=== PATIENT | female | born 1960 | race African-American/Black ===

== ENCOUNTER 2018-08-20 19:27 | Inpatient (IN) | payer MEDICAID ==
[~2018-08-20] VITALS: Ht 165.1 cm; Wt 88.5 kg
[~2018-08-20 19:27] MED LIST: LORA1TAB PO; MIRT30TA7 PO; PHEN100C4; QUET25TA PO
[2018-08-20] MEDS ORDERED: SODIUM CHLORIDE 0.9% 1,000 ML IV ONE ×2 (20:33)
[2018-08-20] MEDS ORDERED: PANTOPRAZOLE SODIUM 40 MG/VIAL IV ONE (21:00)
[2018-08-20 21:09] LABS: BASOPHILS % 0.7 % (0.0-2.0); EOSINOPHILS % 0.7 % (0.0-5.0); HEMATOCRIT. 41.8 % (36.0-48.0); HEMOGLOBIN. 14.1 g/dL (12.0-16.0); MEAN CORPUSCULAR HEMOGLOBIN 29.1 pg (28.0-32.0); MEAN CORPUSCULAR VOLUME 86.4 fL (81.0-99.0); MEAN PLATELET VOLUME 8.3 fl (7.4-10.4); MONOCYTES % 4.4 % (2.0-8.0); NEUTROPHILS % 72.2 % (40.0-76.0); PLATELET 315 x1000/uL (130-400); RED BLOOD CELL COUNT 4.84 mill/uL (4.2-5.4); RED CELL DISTRIBUTION WIDTH 14.8 % (11.6-14.6)
[2018-08-20 21:14] LABS: CHLORIDE 109 mEq/L (98-107); PARTIAL THROMBOPLASTIN TIME 31.5 sec (23.4-31.0); PROTHROMBIN TIME 10.2 sec (9.1-11.1)
[2018-08-20] MEDS ORDERED: METHYLPREDNISOLONE SOD SUCC 125 MG/2 ML VIAL IV STA (21:57)
[2018-08-20] MEDS ORDERED: ALBUTEROL (0.083%) 2.5MG/3ML NEB HHN STA (21:57)
[2018-08-20] MEDS ORDERED: IPRATROPIUM BROMIDE (0.02%) 0.5MG/2.5ML NEB HHN STA (21:57)
[2018-08-20] MEDS ORDERED: SODIUM CHLORIDE 0.9% 1000ML BAG (SEPSIS BOLUS) IV ONE (22:00)
[2018-08-20] MEDS ORDERED: AZITHROMYCIN 500 MG in DEXT 5% WATER 250 ML IV ONE (22:00)
[2018-08-20] MEDS ORDERED: PHENYTOIN SODIUM EXTENDED 100MG CAPSULE PO ONE (22:15)
[2018-08-20 22:57] LABS: CLARITY URINE CLOUDY (CLEAR); COLOR URINE YELLOW (YELLOW); KETONES URINE TRACE (NEGATIVE); LEUKOCYTE ESTERASE URINE 3+ (NEGATIVE); NITRITE URINE NEGATIVE (NEGATIVE); OCCULT BLOOD URINE TRACE (NEGATIVE); PH URINE 5.5 (4.5-8.0); PROTEIN URINE NEGATIVE (NEGATIVE); SPECIFIC GRAVITY URINE 1.012 (1.005-1.030); UROBILINOGEN URINE 0.2 E.U./dL (0.2-1.0)
[2018-08-20] MEDS ORDERED: MAGNESIUM/ALUMINUM HYDROXIDE/SIMETHICONE 30ML UDC PO PRN (23:45)
[2018-08-20] MEDS ORDERED: DOCUSATE SODIUM 100MG CAPSULE PO PRN (23:45)
[2018-08-20] MEDS ORDERED: CLONIDINE 0.1MG TABLET PO PRN (23:45)
[2018-08-20] MEDS ORDERED: ACETAMINOPHEN 325MG TABLET PO PRN (23:45)
[2018-08-20] MEDS ORDERED: ONDANSETRON HCL 4MG/2ML INJ IV PRN (23:45)
[2018-08-20] MEDS ORDERED: IPRATROPIUM/ALBUTEROL 0.5-3(2.5)MG/3ML NEB INH PRN (23:45)
[2018-08-21] MEDS: HYDROCODONE/ACETAMINOPHEN 5/325MG TABLET PO PRN ×4 (00:02→21:37)
[2018-08-21 00:59] LABS: CHLORIDE 112 mEq/L (98-107)
[2018-08-21 02:28] VITALS: BP 138/89
[2018-08-21 06:53] LABS: BASOPHILS % 0.1 % (0.0-2.0); HEMATOCRIT. 39.7 % (36.0-48.0); HEMOGLOBIN. 13.2 g/dL (12.0-16.0); LYMPHOCYTES % 9.5 % (20.0-50.0); MEAN CORPUSCULAR HEMOGLOBIN 29.2 pg (28.0-32.0); MEAN CORPUSCULAR VOLUME 87.7 fL (81.0-99.0); MEAN PLATELET VOLUME 8.2 fl (7.4-10.4); MONOCYTES % 0.8 % (2.0-8.0); NEUTROPHILS % 89.6 % (40.0-76.0); PLATELET 312 x1000/uL (130-400); RED BLOOD CELL COUNT 4.52 mill/uL (4.2-5.4); RED CELL DISTRIBUTION WIDTH 14.2 % (11.6-14.6)
[2018-08-21 07:13] LABS: LDL CHOLESTEROL 124 mg/dL (5-100)
[2018-08-21 07:15] LABS: CREATINE KINASE 180 IU/L (26-192); HDL CHOLESTEROL 38 mg/dL (40-59)
[2018-08-21 07:17] LABS: CREATINE KINASE MB FRACTION 1.7 ng/mL (0.5-3.6)
[2018-08-21 08:30] VITALS: BP 164/96
[2018-08-21] MEDS: ASPIRIN 81MG EC TABLET PO SCH (09:18)
[2018-08-21] MEDS ORDERED: AMLO10TA80 PO (10:19)
[2018-08-21] MEDS ORDERED: DIPHENHYDRAMINE 50MG/ML VIAL IV NR (12:15)
[2018-08-21] MEDS: QUETIAPINE FUMARATE 25MG TABLET PO SCH (12:40)
[2018-08-21] MEDS: PHENYTOIN SODIUM EXTENDED 100MG CAPSULE PO SCH (12:40)
[2018-08-21] MEDS: AMLODIPINE 10MG TABLET PO SCH (12:40)
[2018-08-21 15:30] LABS: *BARBITURATES SCREEN URINE NEGATIVE (NEGATIVE)
[2018-08-21 15:31] LABS: *AMPHETAMINES SCREEN URINE NEGATIVE (NEGATIVE); *BENZODIAZEPINES SCREEN URINE NEGATIVE (NEGATIVE); *COCAINE SCREEN URINE NEGATIVE (NEGATIVE); CANNABINOID URINE SCREEN NEGATIVE (NEGATIVE); METHADONE URINE SCREEN NEGATIVE (NEGATIVE); OPIATES URINE SCREEN PRESUMTIVE POSITIVE (NEGATIVE)
[2018-08-21 15:32] LABS: PHENCYCLIDINE URINE SCREEN NEGATIVE (NEGATIVE)
[2018-08-21 16:00] VITALS: BP 120/73
[2018-08-21] MEDS: PANTOPRAZOLE SODIUM 40 MG/VIAL IV SCH (16:51)
[2018-08-21] MEDS: LORAZEPAM 1MG TABLET PO PRN (16:53)
[2018-08-21 18:52] LABS: CREATINE KINASE 270 IU/L (26-192)
[2018-08-21 18:53] LABS: CREATINE KINASE MB FRACTION 4.3 ng/mL (0.5-3.6)
[2018-08-21 20:00] VITALS: BP 126/79
[2018-08-21] MEDS: IPRATROPIUM/ALBUTEROL 0.5-3(2.5)MG/3ML NEB HHN SCH (21:22)
[2018-08-21] MEDS: MIRTAZAPINE 30MG TABLET PO SCH (21:35)
[2018-08-21] MEDS: GUAIFENESIN 600MG ER TABLET PO SCH (21:38)
[2018-08-21] MEDS ORDERED: AZITHROMYCIN 500 MG TABLET PO SCH (22:00)
[2018-08-22] VITALS (7 sets, daily range): BP systolic 115–140; BP diastolic 65–107
[2018-08-22] MEDS: LORAZEPAM 1MG TABLET PO PRN ×3 (00:42→18:14)
[2018-08-22] MEDS: BENZONATATE 100MG CAPSULE PO PRN ×2 (00:42→10:21)
[2018-08-22] MEDS: IPRATROPIUM/ALBUTEROL 0.5-3(2.5)MG/3ML NEB HHN SCH ×4 (02:04→21:04)
[2018-08-22 06:25] LABS: CHLORIDE 110 mEq/L (98-107)
[2018-08-22 06:28] LABS: BASOPHILS % 0.6 % (0.0-2.0); EOSINOPHILS % 1.6 % (0.0-5.0); HEMATOCRIT. 39.7 % (36.0-48.0); HEMOGLOBIN. 13.2 g/dL (12.0-16.0); LYMPHOCYTES % 36.8 % (20.0-50.0); MEAN CORPUSCULAR VOLUME 87.5 fL (81.0-99.0); MEAN PLATELET VOLUME 8.3 fl (7.4-10.4); MONOCYTES % 5.2 % (2.0-8.0); NEUTROPHILS % 55.8 % (40.0-76.0); PLATELET 304 x1000/uL (130-400); RED BLOOD CELL COUNT 4.54 mill/uL (4.2-5.4); RED CELL DISTRIBUTION WIDTH 14.8 % (11.6-14.6)
[2018-08-22] MEDS: MORPHINE SULFATE 4 MG/ML CPJ (NOT FOR IM USE) IV PRN ×5 (06:46→22:15)
[2018-08-22] MEDS: AMLODIPINE 10MG TABLET PO SCH (09:01)
[2018-08-22] MEDS: GUAIFENESIN 600MG ER TABLET PO SCH ×2 (09:01→21:36)
[2018-08-22] MEDS: DIPHENHYDRAMINE 50MG/ML VIAL IV PRN ×2 (09:01→22:14)
[2018-08-22] MEDS: ASPIRIN 81MG EC TABLET PO SCH (09:02)
[2018-08-22] MEDS: PHENYTOIN SODIUM EXTENDED 100MG CAPSULE PO SCH (09:02)
[2018-08-22] MEDS: QUETIAPINE FUMARATE 25MG TABLET PO SCH (09:02)
[2018-08-22] MEDS: PANTOPRAZOLE SODIUM 40 MG/VIAL IV SCH (09:02)
[2018-08-22] MEDS ORDERED: POTASSIUM CHLORIDE 20MEQ TABLET SR PO NR (13:30)
[2018-08-22] MEDS: LEVOFLOXACIN 500MG PREMIX 100 ML IV SCH (13:52)
[2018-08-22] MEDS: METRONIDAZOLE 500 MG PREMIX 100 ML IV SCH ×2 (14:24→22:14)
[2018-08-22] MEDS ORDERED: SORBITOL 70% SOLN 30ML PO ONE ×2 (16:00→20:00)
[2018-08-22] MEDS: BENZONATATE 100MG CAPSULE PO SCH (17:55)
[2018-08-22] MEDS: MIRTAZAPINE 30MG TABLET PO SCH (21:36)
[2018-08-23] VITALS (7 sets, daily range): BP systolic 98–126; BP diastolic 63–74
[2018-08-23] MEDS: BENZONATATE 100MG CAPSULE PO SCH ×4 (00:42→23:38)
[2018-08-23] MEDS: IPRATROPIUM/ALBUTEROL 0.5-3(2.5)MG/3ML NEB HHN SCH ×2 (02:09→14:46)
[2018-08-23] MEDS: METRONIDAZOLE 500 MG PREMIX 100 ML IV SCH ×3 (05:53→20:33)
[2018-08-23 06:25] LABS: PARTIAL THROMBOPLASTIN TIME 31.7 sec (23.4-31.0); PROTHROMBIN TIME 10.4 sec (9.1-11.1)
[2018-08-23 06:43] LABS: BASOPHILS % 0.6 % (0.0-2.0); EOSINOPHILS % 3.8 % (0.0-5.0); HEMATOCRIT. 43.5 % (36.0-48.0); HEMOGLOBIN. 14.2 g/dL (12.0-16.0); LYMPHOCYTES % 28.7 % (20.0-50.0); MEAN CORPUSCULAR HEMOGLOBIN 28.7 pg (28.0-32.0); MEAN CORPUSCULAR VOLUME 88.1 fL (81.0-99.0); MEAN PLATELET VOLUME 8.1 fl (7.4-10.4); MONOCYTES % 5.5 % (2.0-8.0); NEUTROPHILS % 61.4 % (40.0-76.0); PLATELET 338 x1000/uL (130-400); RED BLOOD CELL COUNT 4.95 mill/uL (4.2-5.4); RED CELL DISTRIBUTION WIDTH 14.5 % (11.6-14.6)
[2018-08-23] MEDS ORDERED: NA PHOS,M-B/NA PHOS,DI-BA ENEMA 118ML PR ONE (07:00)
[2018-08-23 07:47] LABS: CHLORIDE 110 mEq/L (98-107)
[2018-08-23] MEDS: PANTOPRAZOLE SODIUM 40 MG/VIAL IV SCH (08:20)
[2018-08-23] MEDS: DIPHENHYDRAMINE 50MG/ML VIAL IV PRN ×3 (08:20→19:18)
[2018-08-23] MEDS: MORPHINE SULFATE 4 MG/ML CPJ (NOT FOR IM USE) IV PRN ×4 (08:21→23:38)
[2018-08-23] MEDS: PHENYTOIN SODIUM EXTENDED 100MG CAPSULE PO SCH (08:31)
[2018-08-23] MEDS: QUETIAPINE FUMARATE 25MG TABLET PO SCH (08:32)
[2018-08-23] MEDS: AMLODIPINE 10MG TABLET PO SCH (08:32)
[2018-08-23] MEDS: GUAIFENESIN 600MG ER TABLET PO SCH ×2 (08:34→20:33)
[2018-08-23] MEDS ORDERED: MIDAZOLAM HCL 5 MG/5 ML VIAL IV PRN (11:53)
[2018-08-23] MEDS ORDERED: FENTANYL CITRATE/PF 50MCG/ML 2ML VIAL IV PRN (11:54)
[2018-08-23] MEDS ORDERED: FENTANYL CITRATE/PF 50MCG/ML 2ML VIAL ONE (12:00)
[2018-08-23] MEDS ORDERED: MIDAZOLAM HCL 5 MG/5 ML VIAL ONE (12:00)
[2018-08-23] MEDS ORDERED: SIMETHICONE 40 MG/0.6 ML 30ML ONE (14:22)
[2018-08-23] MEDS ORDERED: SODIUM CHLORIDE 0.9% 10ML VIAL ONE (14:22)
[2018-08-23] MEDS: LEVOFLOXACIN 500MG PREMIX 100 ML IV SCH (17:34)
[2018-08-23] MEDS: MIRTAZAPINE 30MG TABLET PO SCH (20:33)
[2018-08-23] MEDS: LORAZEPAM 1MG TABLET PO PRN (23:41)
[2018-08-24 03:34] VITALS: BP 110/71
[2018-08-24] MEDS: METRONIDAZOLE 500 MG PREMIX 100 ML IV SCH ×3 (05:09→20:55)
[2018-08-24] MEDS: DIPHENHYDRAMINE 50MG/ML VIAL IV PRN ×3 (05:09→17:38)
[2018-08-24] MEDS: MORPHINE SULFATE 4 MG/ML CPJ (NOT FOR IM USE) IV PRN ×4 (05:10→21:51)
[2018-08-24 08:00] VITALS: BP 105/76
[2018-08-24 08:09] LABS: BASOPHILS % 0.8 % (0.0-2.0); EOSINOPHILS % 5.2 % (0.0-5.0); HEMATOCRIT. 42.3 % (36.0-48.0); HEMOGLOBIN. 14.1 g/dL (12.0-16.0); LYMPHOCYTES % 34.9 % (20.0-50.0); MEAN CORPUSCULAR HEMOGLOBIN 29.2 pg (28.0-32.0); MEAN CORPUSCULAR VOLUME 87.4 fL (81.0-99.0); MEAN PLATELET VOLUME 7.8 fl (7.4-10.4); MONOCYTES % 7.2 % (2.0-8.0); NEUTROPHILS % 51.9 % (40.0-76.0); PLATELET 340 x1000/uL (130-400); RED BLOOD CELL COUNT 4.84 mill/uL (4.2-5.4); RED CELL DISTRIBUTION WIDTH 14.2 % (11.6-14.6)
[2018-08-24 08:51] LABS: CHLORIDE 111 mEq/L (98-107)
[2018-08-24] MEDS: GUAIFENESIN 600MG ER TABLET PO SCH ×2 (08:58→20:56)
[2018-08-24] MEDS: PHENYTOIN SODIUM EXTENDED 100MG CAPSULE PO SCH (08:58)
[2018-08-24] MEDS: QUETIAPINE FUMARATE 25MG TABLET PO SCH (08:58)
[2018-08-24] MEDS: AMLODIPINE 10MG TABLET PO SCH (08:58)
[2018-08-24] MEDS: PANTOPRAZOLE SODIUM 40 MG/VIAL IV SCH (08:58)
[2018-08-24] MEDS: BENZONATATE 100MG CAPSULE PO SCH ×2 (08:59→16:04)
[2018-08-24] MEDS ORDERED: GUAIFENESIN/CODEINE 100-10MG/5ML UDC PO PRN (10:00)
[2018-08-24 12:00] VITALS: BP 142/70
[2018-08-24] MEDS ORDERED: THROAT LOZENGES-BENZOCAINE/MENTH/CETYLPYRD CL LOZENGES MM PRN (12:00)
[2018-08-24] MEDS: METHYLPREDNISOLONE SOD SUCC 40 MG/ML VIAL IV SCH ×2 (12:22→18:31)
[2018-08-24] MEDS: LEVOFLOXACIN 500MG PREMIX 100 ML IV SCH (12:36)
[2018-08-24] MEDS: LORAZEPAM 1MG TABLET PO PRN (13:23)
[2018-08-24 16:23] VITALS: BP 131/89
[2018-08-24 20:29] VITALS: BP 128/84
[2018-08-24] MEDS: MIRTAZAPINE 30MG TABLET PO SCH (20:55)
[2018-08-24] MEDS: IPRATROPIUM/ALBUTEROL 0.5-3(2.5)MG/3ML NEB HHN SCH (21:27)
[2018-08-25] VITALS (7 sets, daily range): BP systolic 98–129; BP diastolic 62–80
[2018-08-25] MEDS: BENZONATATE 100MG CAPSULE PO SCH ×2 (00:43→09:18)
[2018-08-25] MEDS: LORAZEPAM 1MG TABLET PO PRN (00:57)
[2018-08-25] MEDS: DIPHENHYDRAMINE 50MG/ML VIAL IV PRN ×2 (02:00→09:17)
[2018-08-25] MEDS: MORPHINE SULFATE 4 MG/ML CPJ (NOT FOR IM USE) IV PRN ×3 (02:00→13:24)
[2018-08-25] MEDS: IPRATROPIUM/ALBUTEROL 0.5-3(2.5)MG/3ML NEB HHN SCH ×3 (02:53→14:33)
[2018-08-25] MEDS: METHYLPREDNISOLONE SOD SUCC 40 MG/ML VIAL IV SCH ×2 (02:59→12:39)
[2018-08-25] MEDS: METRONIDAZOLE 500 MG PREMIX 100 ML IV SCH (06:16)
[2018-08-25 07:12] LABS: HEMATOCRIT. 41.5 % (36.0-48.0); HEMOGLOBIN. 13.7 g/dL (12.0-16.0); MEAN CORPUSCULAR HEMOGLOBIN 28.9 pg (28.0-32.0); MEAN CORPUSCULAR VOLUME 87.8 fL (81.0-99.0); MEAN PLATELET VOLUME 8.1 fl (7.4-10.4); PLATELET 356 x1000/uL (130-400); RED BLOOD CELL COUNT 4.73 mill/uL (4.2-5.4); RED CELL DISTRIBUTION WIDTH 14.1 % (11.6-14.6)
[2018-08-25 07:26] LABS: CHLORIDE 110 mEq/L (98-107)
[2018-08-25] MEDS: QUETIAPINE FUMARATE 25MG TABLET PO SCH (09:19)
[2018-08-25] MEDS: PHENYTOIN SODIUM EXTENDED 100MG CAPSULE PO SCH (09:19)
[2018-08-25] MEDS: AMLODIPINE 10MG TABLET PO SCH (09:19)
[2018-08-25] MEDS: GUAIFENESIN 600MG ER TABLET PO SCH (09:19)
[2018-08-25] MEDS: PANTOPRAZOLE SODIUM 40 MG/VIAL IV SCH (09:20)
[2018-08-25 10:51] LABS: PLATELET ESTIMATE NORMAL
[2018-08-25] MEDS ORDERED: GUAI5LIQ8 PO (11:55)
[2018-08-25] MEDS ORDERED: LEVO500T89 MT (11:55)
[2018-08-25] MEDS ORDERED: MED4 MT (11:55)
[2018-08-25] MEDS ORDERED: BENZ100C86 PO (11:55)
[2018-08-25] MEDS ORDERED: PHENYTOIN SODIUM EXTENDED 100MG CAPSULE PO SCH ×2 (12:39→17:00)
== END 2018-08-25 16:30 | disposition home or self-care (01) | DRG 720 ==
LOC: EDBEDREQ 22:01 → ER 23:35 → 8WST 23:36 → ENRESERV 08-21 01:10
PROVIDERS: ADMIT Internal Medicine; ATTEND Internal Medicine
PROC: 0DBP8ZX Excision of Rectum, Via Natural or Artificial Opening Endoscopic, Diagnostic (ICD-10-PCS; principal; 2018-08-23)
PROC: 0DBL8ZX Excision of Transverse Colon, Via Natural or Artificial Opening Endoscopic, Diagnostic (ICD-10-PCS; 2018-08-23)
DX: A41.9 Sepsis, unspecified organism (principal); J96.00 Acute respiratory failure, unspecified whether with hypoxia or hypercapnia; K55.039 Acute (reversible) ischemia of large intestine, extent unspecified; J18.0 Bronchopneumonia, unspecified organism; F03.90 Unspecified dementia, unspecified severity, without behavioral disturbance, psychotic disturbance, mood disturbance, and anxiety; K57.31 Diverticulosis of large intestine without perforation or abscess with bleeding; E87.6 Hypokalemia; I10 Essential (primary) hypertension; N39.0 Urinary tract infection, site not specified; J40 Bronchitis, not specified as acute or chronic; F17.210 Nicotine dependence, cigarettes, uncomplicated; F32.9 Major depressive disorder, single episode, unspecified; G40.909 Epilepsy, unspecified, not intractable, without status epilepticus; N20.0 Calculus of kidney; Z90.49 Acquired absence of other specified parts of digestive tract; Z88.1 Allergy status to other antibiotic agents; Z91.012 Allergy to eggs; Z88.0 Allergy status to penicillin; Z88.8 Allergy status to other drugs, medicaments and biological substances; Z91.018 Allergy to other foods; Z79.899 Other long term (current) drug therapy
CPT/HCPCS: 36415; 71045; 74176; 80048; 80061; 80185; 80305; 82270; 82550; 82553; 83605; 83880; 84145; 84443; 84484; 86850; 86900; 87077; 87186; 87804; 88305; 93005; 93970; 94640; 96361; 96374; 99285; C1893; C9113; J0456; J1200; J1956; J2250; J2270; J2920; J2930; J3010; J3490; J7030; J7050; J7060; J7611; J7620

== ENCOUNTER 2023-10-15 14:43 | Emergency (ER) | payer MEDICARE, MEDICAID ==
[~2023-10-15] VITALS: Ht 170.2 cm; Wt 63.0 kg
[~2023-10-15 14:43] MED LIST changes: +ATOR20TA65 MT; +CLOP-31 PO; +COR3 MT; +FURO-151 MT; -LORA1TAB PO; +LOSA-413 MT; +MED4 MT; +METO-396 MT; -MIRT30TA7 PO; +MIRT45TA83 MT; +NYST15PO4 TP; -PHEN100C4; -QUET25TA PO; +QUET50TA PO; +SIMV-43 MT; +SPIR25TA MT
[2023-10-15 14:51] VITALS: TEMP 98.1; O2SAT 100
[2023-10-15] MEDS: HYDROCODONE/ACETAMINOPHEN 5/325MG TABLET PO STA (16:12)
[2023-10-15] MEDS ORDERED: TRAM50TA3 MT (17:10)
[2023-10-15] MEDS ORDERED: ACET-2708 PO (17:10)
[2023-10-15 17:32] VITALS: BP 113/69; PULSE 83; RESP 20
[2023-10-15] MEDS: KETOROLAC 30MG/ML VIAL IM STA (17:32)
== END 2023-10-15 21:24 | disposition home or self-care (01) ==
LOC: ER 14:43
DX: S70.01XA Contusion of right hip, initial encounter (principal); S70.11XA Contusion of right thigh, initial encounter; F32.9 Major depressive disorder, single episode, unspecified; I10 Essential (primary) hypertension; Z98.890 Other specified postprocedural states; Z79.899 Other long term (current) drug therapy; W10.8XXA Fall (on) (from) other stairs and steps, initial encounter; Y93.89 Activity, other specified; Y92.89 Other specified places as the place of occurrence of the external cause; Y99.8 Other external cause status
CPT/HCPCS: 99285; 72192; 81025; 73552; 96372; J1885

== ENCOUNTER 2024-08-06 22:49 | Emergency (ER) | payer MEDICARE, MEDICAID ==
[~2024-08-06] VITALS: Ht 167.6 cm; Wt 72.0 kg
[~2024-08-06 22:49] MED LIST changes: +ACET-2708 PO; -MED4 MT; +METH4TAB95 MT; +NYST15PO13 TP; -NYST15PO4 TP; +TRAM50TA3 MT
[2024-08-06 22:51] VITALS: O2SAT 96
[2024-08-06 23:30] VITALS: PULSE 78; RESP 18
[2024-08-06] MEDS: IPRATROPIUM BROMIDE (0.02%) 0.5MG/2.5ML NEB HHN STA (23:30)
[2024-08-06] MEDS: ALBUTEROL (0.083%) 2.5MG/3ML NEB HHN STA (23:30)
[2024-08-06 23:43] LABS: HEMATOCRIT. 41.2 % (36.0-48.0); HEMOGLOBIN. 13.6 g/dL (12.0-16.0); MEAN CORPUSCULAR HEMOGLOBIN 31.2 pg (28.0-32.0); MEAN CORPUSCULAR VOLUME 94.6 fL (81.0-99.0); MEAN PLATELET VOLUME 8.1 fl (7.4-10.4); PLATELET 216 x1000/uL (130-400); RED BLOOD CELL COUNT 4.35 mill/uL (4.2-5.4); RED CELL DISTRIBUTION WIDTH 14.8 % (11.6-14.6); WHITE BLOOD COUNT 6.2 x1000/uL (4.5-11.0)
[2024-08-06 23:49] LABS: PROTHROMBIN TIME 10.9 sec (9.6-11.0)
[2024-08-06 23:51] LABS: CHLORIDE 107 mEq/L (98-107); POTASSIUM 3.9 mEq/L (3.5-5.1); SODIUM 137 mEq/L (136-145)
[2024-08-06 23:52] LABS: CALCIUM 9.4 mg/dL (8.7-10.4); CARBON DIOXIDE 23 mEq/L (21-32)
[2024-08-06 23:57] LABS: GLUCOSE 108 mg/dL (70-105); TROPONIN I HIGH SENSITIVITY 11 ng/L (3.0-34); UREA NITROGEN BLOOD 11 mg/dL (9-23)
[2024-08-06 23:59] LABS: ALANINE AMINOTRANSFERASE 10 IU/L (10-49); ALBUMIN 4.4 g/dL (3.2-4.8); ASPARTATE AMINOTRANSFERASE 21 IU/L (<34); BILIRUBIN TOTAL 0.2 mg/dL (0.1-1.0); PROTEIN TOTAL 7.2 g/dL (6.0-8.3)
[2024-08-07 00:13] LABS: BILIRUBIN DIRECT < 0.1 mg/dL (<=3.0)
[2024-08-07 00:28] LABS: DIFFERENTIAL COMMENT 1
[2024-08-07] MEDS: METHYLPREDNISOLONE SOD SUCC 125MG/2ML (ACT-O-VIAL) IV NR (00:59)
[2024-08-07] MEDS: METHYLPREDNISOLONE SOD SUCC 125MG/2ML (ACT-O-VIAL) IV STA (00:59)
[2024-08-07 02:11] LABS: TROPONIN I HIGH SENSITIVITY 10 ng/L (3.0-34)
[2024-08-07] MEDS ORDERED: MORPHINE SULFATE 4 MG/ML INJ (FOR IV/IM USE) IV ONE (02:45)
[2024-08-07] MEDS: MORPHINE SULFATE 4 MG/ML INJ (FOR IV/IM USE) IV NR (05:46)
[2024-08-07] MEDS: ASPIRIN 325MG TABLET PO NR (05:46)
[2024-08-07] MEDS: ASPIRIN 325MG TABLET PO ONE (05:47)
[2024-08-07 07:04] VITALS: TEMP 37.44744; O2SAT 91
[2024-08-07 07:14] LABS: CLARITY URINE CLOUDY (CLEAR); COLOR URINE YELLOW (YELLOW); GLUCOSE URINE NEGATIVE (NEGATIVE); KETONES URINE NEGATIVE (NEGATIVE); LEUKOCYTE ESTERASE URINE 3+ (NEGATIVE); NITRITE URINE NEGATIVE (NEGATIVE); OCCULT BLOOD URINE TRACE (NEGATIVE); PROTEIN URINE 1+ (NEGATIVE); UROBILINOGEN URINE 0.2 E.U./dL (0.2-1.0)
[2024-08-07 07:33] LABS: PLATELET ESTIMATE NORMAL
[2024-08-07 07:48] LABS: SQUAMOUS EPITHELIAL CELL URINE 3+ /lpf (RARE/1+)
[2024-08-07 07:49] LABS: BACTERIA URINE 2+
[2024-08-07 07:50] LABS: RBC URINE 0-2 /hpf (0-2)
[2024-08-07] MEDS ORDERED: ACETAMINOPHEN 325MG TABLET PO PRN (09:45)
[2024-08-07] MEDS ORDERED: ONDANSETRON HCL 4MG/2ML INJ IV PRN (09:45)
[2024-08-07] MEDS ORDERED: CLONIDINE 0.1MG TABLET PO PRN (09:45)
[2024-08-07] MEDS ORDERED: DOCUSATE SODIUM 100MG CAPSULE PO PRN (09:45)
[2024-08-07] MEDS ORDERED: IPRATROPIUM/ALBUTEROL 0.5-3(2.5)MG/3ML NEB HHN PRN (09:45)
[2024-08-07 11:04] LABS: BG BASE EXCESS -6.4 mmol/L (-2.0-3.0); BG CARBOXYHEMOGLOBIN 2.1 % (0.5-1.5); BG DEOXYHEMOGLOBIN 8.9 % (0.0-5.0); BG FRACTION INSPIRED OXYGEN 21; BG HCO3 ACT 17.7 mmol/L (21.0-28.0); BG METHEMOGLOBIN 0.3 % (0.5-1.5); BG OXYGEN SATURATION 90.9 % (94.0-98.0); BG OXYHEMOGLOBIN 88.7 % (94.0-98.0); BG PCO2 31.4 mmHg (32.0-45.0); BG PH 7.368 (7.350-7.450); BG PO2 59.4 mmHg (83.0-108.0); BG SAMPLE SITE RIGHT BRACHIAL; BG TOTAL HEMOGLOBIN 14.3 g/dL (12.0-16.0); BG VENT MODE ROOM AIR
[2024-08-07 11:07] VITALS: PULSE 82; RESP 18
[2024-08-07] MEDS: IPRATROPIUM/ALBUTEROL 0.5-3(2.5)MG/3ML NEB HHN SCH (11:07)
[2024-08-07] MEDS: ENOXAPARIN 40MG/0.4ML SYR SUBCUT SCH (12:18)
[2024-08-07 12:19] VITALS: TEMP 99.4
[2024-08-07] MEDS: ACETAMINOPHEN 325MG TABLET PO PRN (12:19)
[2024-08-07 13:18] LABS: D-DIMER 0.72 mg/L FEU (<0.50); PROTHROMBIN TIME 10.9 sec (9.6-11.0)
[2024-08-07 13:22] LABS: BASOPHILS % 0.2 % (0.0-2.0); DIFFERENTIAL COMMENT 0; HEMATOCRIT. 39.8 % (36.0-48.0); HEMOGLOBIN. 13.2 g/dL (12.0-16.0); LYMPHOCYTES % 11.9 % (20.0-50.0); MEAN CORPUSCULAR HEMOGLOBIN 31.3 pg (28.0-32.0); MEAN CORPUSCULAR HGB CONC 33.1 g/dL (31.0-37.0); MEAN CORPUSCULAR VOLUME 94.7 fL (81.0-99.0); MEAN PLATELET VOLUME 8.2 fl (7.4-10.4); MONOCYTES % 2.7 % (2.0-8.0); NEUTROPHILS % 85.2 % (40.0-76.0); PLATELET 202 x1000/uL (130-400); RED CELL DISTRIBUTION WIDTH 15.3 % (11.6-14.6); WHITE BLOOD COUNT 4.3 x1000/uL (4.5-11.0)
[2024-08-07 13:35] LABS: CARBON DIOXIDE 20 mEq/L (21-32); CHLORIDE 108 mEq/L (98-107); POTASSIUM 3.9 mEq/L (3.5-5.1); SODIUM 136 mEq/L (136-145)
[2024-08-07 13:36] LABS: CALCIUM 9.2 mg/dL (8.7-10.4)
[2024-08-07 13:40] LABS: LACTIC ACID 2.1 mmol/L (0.4-2.0)
[2024-08-07 13:41] LABS: CREATININE 0.8 mg/dL (0.6-1.0); GLUCOSE 202 mg/dL (70-105); UREA NITROGEN BLOOD 13 mg/dL (9-23)
[2024-08-07 13:42] LABS: ALANINE AMINOTRANSFERASE 11 IU/L (10-49)
[2024-08-07 13:43] LABS: ALBUMIN 4.3 g/dL (3.2-4.8); ASPARTATE AMINOTRANSFERASE 22 IU/L (<34); BILIRUBIN TOTAL 0.2 mg/dL (0.1-1.0); PHOSPHORUS 3.6 mg/dL (2.5-4.9); THYROID STIMULATING HORMONE < 0.10 uIU/mL (0.55-4.78)
[2024-08-07 14:13] LABS: BILIRUBIN DIRECT < 0.1 mg/dL (<=3.0)
[2024-08-07] MEDS ORDERED: NALOXONE HCL 0.4MG/ML VIAL IV PRN (17:45)
[2024-08-07 17:51] VITALS: BP 106/61
[2024-08-07] MEDS: HYDROCODONE/ACETAMINOPHEN 10/325MG TABLET PO PRN (17:51)
[2024-08-07 18:04] VITALS: PULSE 75; RESP 18
[2024-08-07] MEDS ORDERED: AMLO10TA80 MT (18:10)
[2024-08-07] MEDS ORDERED: MIRT45TA90 MT (18:10)
[2024-08-07] MEDS ORDERED: PANT40TA51 MT (18:10)
[2024-08-07] MEDS ORDERED: LISI-186 MT (18:10)
[2024-08-07] MEDS ORDERED: NITROFURANTOIN 100MG M/M CAPSULE PO SCH (21:00)
[2024-08-07 21:51] LABS: CREATINE KINASE MB FRACTION 4.3 ng/mL (0.5-3.6)
[2024-08-08] MEDS ORDERED: FUROSEMIDE 40MG/4ML VIAL IVP SCH (09:00)
[2024-08-08] MEDS ORDERED: ASPIRIN 81MG TABLET PO SCH (09:00)
[2024-08-08 15:20] LABS: *AMPHETAMINES SCREEN URINE NEGATIVE (NEGATIVE); *BARBITURATES SCREEN URINE NEGATIVE (NEGATIVE); *BENZODIAZEPINES SCREEN URINE NEGATIVE (NEGATIVE); *COCAINE SCREEN URINE NEGATIVE (NEGATIVE); CANNABINOID URINE SCREEN NEGATIVE (NEGATIVE); ECSTASY MDMA SCREEN URINE NEGATIVE (NEGATIVE); METHADONE URINE SCREEN NEGATIVE (NEGATIVE); OPIATES URINE SCREEN PRESUMPTIVE POSITIVE (NEGATIVE); PHENCYCLIDINE URINE SCREEN NEGATIVE (NEGATIVE)
[2024-08-19] MEDS ORDERED: METH4TAB95 MT (10:09)
[2024-08-19] MEDS ORDERED: ALBU18HF2 IH (10:10)
[2024-08-19] MEDS ORDERED: RDML10 PO (10:11)
== END 2024-08-07 22:40 | disposition left against medical advice (07) ==
LOC: ER 22:49 → EDBEDREQ 08-07 05:11 → ER 08-07 22:40
DX: J44.1 Chronic obstructive pulmonary disease with (acute) exacerbation (principal); F32.A Depression, unspecified; I11.0 Hypertensive heart disease with heart failure; F17.210 Nicotine dependence, cigarettes, uncomplicated; Z79.899 Other long term (current) drug therapy; Z86.73 Personal history of transient ischemic attack (TIA), and cerebral infarction without residual deficits; Z88.0 Allergy status to penicillin; Z88.1 Allergy status to other antibiotic agents; Z88.8 Allergy status to other drugs, medicaments and biological substances; Z90.49 Acquired absence of other specified parts of digestive tract; Z95.1 Presence of aortocoronary bypass graft
CPT/HCPCS: 99285; 71045; 87426; 80305; 80048; 81003; 82550; 82553; 83880; 84439; 84480; 83605; 83735; 84100; 84443; 85025; 85379; 85610; 87040; 87086; 84484; 87804 ×2; 84145; 94640; 96374; 96375; 96372; 80076; 36415; J1650; J2919; J2270